=== PATIENT | female | born 1955 | race Caucasian/White ===

== ENCOUNTER 2018-12-26 14:12 | Emergency (ER) | payer OTHER ==
[~2018-12-26] VITALS: Ht 152.4 cm; Wt 63.5 kg
[~2018-12-26 14:12] MED LIST: HYDROCODONE-CHLORPH SUSP 115ML PO; POM (MEDICAMENTO EN PHA) IH; Proventil 0.083% 2.5MG/3ML AMPUL.NEB. IH
== END 2018-12-27 08:28 | disposition home or self-care (01) ==
LOC: ER 14:12
DX: J45.998 Other asthma (principal); R06.02 Shortness of breath